=== PATIENT | male | born 1985 | race Caucasian/White ===

== ENCOUNTER → 2021-11-22 | Outpatient (CLI) | payer OTHER ==
[~2021-11-22] MED LIST: GADOTERATE 7.5 MMOL/15ML VIAL. IVP ONE
--- NOTE | 2021-11-22 12:13 | NUR ---
Patient needed IV access for MRI and multiple attempts at peripheral IV's (x5)made. This RN used image guidance (ultrasound) to place a 20 gauge accucath in patient's right brachial vein. Good blood return and IV flushed well. Escorted patient to MRI for study, no problems noted.
--- NOTE | 2021-11-22 12:50 | RAD ---
EXAMINATION: Magnetic resonance imaging (MRI) of the brain and brainstem without and with contrast HISTORY: Left ear hearing loss TECHNIQUE: Multiplanar multi-weighted MRI of the brain and brainstem was performed without and with i ntravenous contrast using the internal auditory canal protocol. This included sequences detailing the internal auditory canals and posterior fossa Contrast information: 19 mL Gadolinium based contrast COMPARISON: None available. FINDINGS: The cerebellopontine angles are normal, with no evidence of extra-axial mass or aneurysm. The VII/ II nerve complexes appear normal. There are no areas of abnormal contrast enhancement. The upper ce rvical spinal cord and spine are normal. The scalp and calvarium are normal. The superior sagittal sinus demonstrates normal venous flow. The corpus callosum is normal in shape and signal intensity. The posterior fossa is unremarkable. The p ituitary and sella are normal. The brainstem and craniocervical junction are unremarkable. There are T2/FLAIR signal hyperintense foci in the periventricular and subcortical white matter which are inde terminate. Diffusion weighted images reveal no hyperintensities to suggest acute cerebral infarction. The suscep tibility weighted sequences reveal no evidence of acute or chronic hemorrhage. The ventricles are nor mal in size and position without evidence of hydrocephalus. Small developmental venous anomaly identi fied along the right frontal lobe (axial postcontrast image 22). The paranasal sinuses are normal. The visualized portions of the mastoids are unremarkable. The orbi ts appear normal. Normal flow voids are demonstrated in the carotid arteries and basilar artery. IMPRESSION: No lesions in the posterior fossa, internal auditory canals, or temporal bones to explain the patient 's hearing loss. There are T2/FLAIR signal hyperintense foci in the periventricular and subcortical white matter. Find ings are of indeterminate etiology in this age group and differential considerations would include ea rly chronic small vessel ischemic changes, changes associated with migraine disorder, vasculitis or d emyelinating disorder. Small developmental venous anomaly in the right frontal lobe. Electronically signed by: Cori Jarvis MD (11/22/2021 12:48 PM) [id number]
== END ==
LOC: MRI 08:20
DX: Q28.3 Other malformations of cerebral vessels (principal); H90.42 Sensorineural hearing loss, unilateral, left ear, with unrestricted hearing on the contralateral side; H93.12 Tinnitus, left ear
CPT/HCPCS: 70553; A9575